=== PATIENT | female | born 1990 | race Two or more races ===

== ENCOUNTER 2021-07-03 08:46 | Outpatient (CLI) | payer OTHER ==
[2021-07-03] MEDS ORDERED: PRENATABS RX T1 EACH PO (23:29)
== END 2021-07-03 10:25 | disposition home or self-care (01) ==
LOC: PRENATAL 08:46
PROVIDERS: ATTEND Obstetrics & Gynecology Maternal & Fetal Medicine
DX: O26.843 Uterine size-date discrepancy, third trimester (principal); O24.410 Gestational diabetes mellitus in pregnancy, diet controlled; O44.03 Complete placenta previa NOS or without hemorrhage, third trimester; O26.873 Cervical shortening, third trimester; Z36.89 Encounter for other specified antenatal screening; Z3A.31 31 weeks gestation of pregnancy

== ENCOUNTER 2021-07-03 22:06 | Inpatient (IN) | payer OTHER ==
[~2021-07-03] VITALS: Ht 149.9 cm; Wt 75.7 kg
[2021-07-03] MEDS ORDERED: PRENATABS RX T1 EACH PO (23:29)
== END 2021-07-07 11:00 | disposition home or self-care (01) | DRG 832 ==
LOC: LDR 22:06 → OB/GYN 07-05 12:13
PROVIDERS: ADMIT Obstetrics & Gynecology; ATTEND Obstetrics & Gynecology
PROC: 4A1HXFZ Monitoring of Products of Conception, Cardiac Rhythm, External Approach (ICD-10-PCS; principal; 2021-07-03)
DX: O47.03 False labor before 37 completed weeks of gestation, third trimester (principal); O26.873 Cervical shortening, third trimester; O24.419 Gestational diabetes mellitus in pregnancy, unspecified control; O46.93 Antepartum hemorrhage, unspecified, third trimester; Z3A.30 30 weeks gestation of pregnancy

== ENCOUNTER 2021-08-07 14:00 | Outpatient (CLI) | payer OTHER ==
[~2021-08-07 14:00] MED LIST: PRENATABS RX T1 EACH PO
== END 2021-08-07 15:09 | disposition home or self-care (01) ==
LOC: PRENATAL 14:00
PROVIDERS: ATTEND Obstetrics & Gynecology Maternal & Fetal Medicine
DX: O26.843 Uterine size-date discrepancy, third trimester (principal); O24.410 Gestational diabetes mellitus in pregnancy, diet controlled; O36.8131 Decreased fetal movements, third trimester, fetus 1; O35.0XX1 Maternal care for (suspected) central nervous system malformation in fetus, fetus 1; Z36.89 Encounter for other specified antenatal screening; Z3A.35 35 weeks gestation of pregnancy

== ENCOUNTER 2021-08-24 23:29 | Inpatient (IN) | payer OTHER ==
[~2021-08-24] VITALS: Ht 149.9 cm; Wt 75.7 kg
== END 2021-08-27 13:00 | disposition home or self-care (01) | DRG 807 ==
LOC: LDR 23:29 → OB/GYN 23:29
PROVIDERS: ADMIT Obstetrics & Gynecology; ATTEND Obstetrics & Gynecology
PROC: 4A1HXCZ Monitoring of Products of Conception, Cardiac Rate, External Approach (ICD-10-PCS; 2021-08-24)
PROC: 10E0XZZ Delivery of Products of Conception, External Approach (ICD-10-PCS; principal; 2021-08-25)
PROC: 0W8NXZZ Division of Female Perineum, External Approach (ICD-10-PCS; 2021-08-25)
DX: O80 Encounter for full-term uncomplicated delivery (principal); Z37.0 Single live birth; Z3A.38 38 weeks gestation of pregnancy; Z20.822 Contact with and (suspected) exposure to COVID-19

== ENCOUNTER → 2022-10-12 | Emergency (ER) | payer OTHER ==
[~2022-10-12] VITALS: Ht 149.9 cm; Wt 59.9 kg
== END | disposition home or self-care (01) ==
LOC: ER 09:09
DX: R53.81 Other malaise (principal); J06.9 Acute upper respiratory infection, unspecified; R09.81 Nasal congestion; J02.9 Acute pharyngitis, unspecified; G44.89 Other headache syndrome; Z20.822 Contact with and (suspected) exposure to COVID-19; Z91.018 Allergy to other foods

== ENCOUNTER 2022-10-16 20:13 | Emergency (ER) | payer OTHER ==
[~2022-10-16] VITALS: Ht 149.9 cm; Wt 60.3 kg
== END 2022-10-16 22:43 | disposition home or self-care (01) ==
LOC: ER 20:13
DX: O20.8 Other hemorrhage in early pregnancy (principal); Z3A.22 22 weeks gestation of pregnancy; Z37.9 Outcome of delivery, unspecified; Z91.018 Allergy to other foods

== ENCOUNTER 2023-04-21 08:56 | Inpatient (IN) | payer OTHER ==
[~2023-04-21] VITALS: Ht 149.9 cm; Wt 73.0 kg
[2023-04-21 09:19] LABS: HEMATOCRIT 35.8 % (36.0-45.00); HEMOGLOBIN 12.3 g/dL (12.0-15.00); MEAN CELL VOLUME 95.8 fL (80.00-100.00); MEAN CORPUSCULAR HGB CONC 34.5 g/dl (32.0-36.0); PLATELET COUNT 219 K/uL (150-450); RED BLOOD COUNT 3.73 M/uL (4.00-6.00); RED CELL DISTRIBUTION WIDTH 14.3 % (11.5-14.5)
[2023-04-21 09:57] LABS: URINE APPEARANCE Cloudy; URINE BILIRRUBIN Negative (NEGATIVE); URINE COLOR Yellow; URINE GLUCOSE Negative (NEGATIVE); URINE LEUKOCYTE Small; URINE NITRATE Negative; URINE PROTEIN Trace (NEGATIVE)
[2023-04-21 09:58] LABS: URINE BACTERIA 5150.7 uL (0.0-1933); URINE EPITHELIAL CELLS 87.2 uL (0.0-38.8); URINE RBC 46.9 uL (0.0-20.8); URINE WBC 245.9 uL (0.0-23.2)
[2023-04-21 10:06] LABS: URINE BLOOD TRACES
[2023-04-21 10:06] LABS: INR < 0.93; PARTIAL THROMBOPLASTIN TIME 26.7 SECONDS (22.0-34.0); PROTHROMBIN TIME 9.3 SECONDS (9.0-11.5)
[2023-04-21 20:17] LABS: HEMATOCRIT 35.4 % (36.0-45.00); HEMOGLOBIN 12.3 g/dL (12.0-15.00); MEAN CELL VOLUME 95.4 fL (80.00-100.00); MEAN CORPUSCULAR HEMOGLOBIN 33.2 pg (27.00-32.0); MEAN CORPUSCULAR HGB CONC 34.8 g/dl (32.0-36.0); PLATELET COUNT 206 K/uL (150-450); RED BLOOD COUNT 3.71 M/uL (4.00-6.00); RED CELL DISTRIBUTION WIDTH 14.1 % (11.5-14.5)
== END 2023-04-23 14:33 | disposition home or self-care (01) | DRG 807 ==
LOC: LDR 08:56 → OB/GYN 08:56 → LDR 08:59 → OB/GYN 17:04
PROVIDERS: ADMIT Obstetrics & Gynecology; ATTEND Obstetrics & Gynecology
PROC: 10E0XZZ Delivery of Products of Conception, External Approach (ICD-10-PCS; principal; 2023-04-21)
PROC: 4A1HXCZ Monitoring of Products of Conception, Cardiac Rate, External Approach (ICD-10-PCS; 2023-04-21)
DX: O80 Encounter for full-term uncomplicated delivery (principal); Z37.0 Single live birth; Z3A.39 39 weeks gestation of pregnancy; Z20.822 Contact with and (suspected) exposure to COVID-19